=== PATIENT | female | born 1970 | race Caucasian/White ===

== ENCOUNTER → 2016-08-27 | Outpatient (CLI) | payer OTHER ==
[~2016-08-27] MED LIST: NORCO 325 MG-51 TAB PO; PRIL40 PO; QVAR0.08 MG/AC IH; ZYRTEC 10MG10 MG PO
== END ==
LOC: MC.RAD 14:45
DX: Z12.31 Encounter for screening mammogram for malignant neoplasm of breast (principal)

== ENCOUNTER 2017-08-05 08:44 | Inpatient (IN) | payer OTHER ==
[~2017-08-05] VITALS: Ht 157.5 cm; Wt 93.2 kg
[2017-08-05 09:16] LABS: HEMATOCRIT 41.6 % (37.0-47.0); HEMOGLOBIN 14.1 g/dl (12.5-16.0); MEAN CELL VOLUME 91 fl (80.0-100.0); MEAN CORPUSCULAR HEMOGLOBIN 31 pg (27.0-31.0); MEAN CORPUSCULAR HGB CONC 34 g/dl (33.0-37.0); PLATELET COUNT 220 K/mm3 (130-400); RED BLOOD COUNT 4.55 M/mm3 (4.10-5.30); REDCELL DISTRIBUTION WIDTH-CV 13.7 % (11.5-14.5)
[2017-08-05 09:22] LABS: PROTHROMBIN TIME 11.7 SECONDS (9.7-12.8)
[2017-08-05 09:24] LABS: PARTIAL THROMBOPLASTIN TIME 31.8 SECONDS (26.0-37.0)
[2017-08-05 09:26] LABS: ALANINE AMINOTRANSFERASE 40 U/L (9-52); ALBUMIN 4.4 gm/dL (3.5-5.0); ALKALINE PHOSPHATASE 130 U/L (50-136); ANION GAP 15 mmol/L (7-16); AST,SGOT 31 U/L (15-37); BILIRUBIN,TOTAL 0.5 mg/dL (0.0-1.0); BLOOD UREA NITROGEN 16 mg/dL (7-17); CALCIUM 9.2 mg/dL (8.4-10.2); CARBON DIOXIDE 23 mmol/L (22-30); CHLORIDE 104 mmol/L (98-107); CREATININE, serum 0.67 mg/dL (0.52-1.25); GLUCOSE 119 mg/dL (74-106); POTASSIUM 4.2 mmol/L (3.4-5.0); SODIUM 142 mmol/L (137-145)
[2017-08-05 09:37] LABS: TROPONIN-I < 0.012 ng/mL (0.000-0.034)
[2017-08-05 10:09] LABS: BAND 7 % (0-10); BASOPHIL 1 % (0-2); LYMPHOCYTE 3 % (20.0-51.0); NEUTROPHILS 87 % (42.0-75.2); PLATELET ESTIMATE NORMAL (NORMAL)
[2017-08-05 16:16] VITALS: BP 114/49; PULSE 79; TEMP 99.5
[2017-08-05 19:56] VITALS: BP 129/57; PULSE 80; TEMP 98.6
[2017-08-05 23:58] VITALS: BP 107/46; PULSE 81; TEMP 101.8; TEMP 98.3
[2017-08-06] VITALS (14 sets, daily range): BP systolic 104–128; BP diastolic 46–78; PULSE 61–94; TEMP 98.5–99.5
[2017-08-06 07:10] LABS: MEAN CORPUSCULAR HGB CONC 32 g/dl (33.0-37.0); PLATELET COUNT 171 K/mm3 (130-400); RED BLOOD COUNT 3.78 M/mm3 (4.10-5.30)
[2017-08-06 07:11] LABS: ANION GAP 12 mmol/L (7-16); BLOOD UREA NITROGEN 13 mg/dL (7-17); CALCIUM 8.1 mg/dL (8.4-10.2); CARBON DIOXIDE 25 mmol/L (22-30); CHLORIDE 104 mmol/L (98-107); CHOLESTEROL 151 mg/dL (120-200); CREATININE, serum 0.83 mg/dL (0.52-1.25); GLUCOSE 92 mg/dL (74-106); HDL CHOLESTEROL 30 mg/dL; LDL CHOLESTEROL 81 mg/dL; MAGNESIUM 1.9 mg/dL (1.6-2.3); POTASSIUM 3.5 mmol/L (3.4-5.0); SODIUM 140 mmol/L (137-145); TRIGLYCERIDE 201 mg/dL
[2017-08-06 07:12] LABS: HEMATOCRIT 36.1 % (37.0-47.0); HEMOGLOBIN 11.7 g/dl (12.5-16.0); MEAN CELL VOLUME 96 fl (80.0-100.0); MEAN CORPUSCULAR HEMOGLOBIN 31 pg (27.0-31.0)
[2017-08-06 07:41] LABS: TROPONIN-I < 0.012 ng/mL (0.000-0.034)
[2017-08-06 07:54] LABS: BAND 7 % (0-10); BASOPHIL 1 % (0-2); LYMPHOCYTE 7 % (20.0-51.0); NEUTROPHILS 80 % (42.0-75.2); PLATELET ESTIMATE NORMAL (NORMAL)
[2017-08-07 00:17] VITALS: BP 120/52; PULSE 87; TEMP 99.1
[2017-08-07 04:27] VITALS: BP 119/54; PULSE 88; TEMP 98.9
[2017-08-07 07:34] VITALS: BP 110/48; PULSE 77; TEMP 98
[2017-08-07] MEDS ORDERED: PRIL40 PO (09:15)
== END 2017-08-07 10:45 | disposition home or self-care (01) | DRG 287 ==
LOC: COL.ER 08:44 → SDCO 12:11 → COL.ER 12:11 → MEDICAL 12:11 → SDCO 08-07 10:45 → MEDICAL 08-07 10:48
PROVIDERS: Family Medicine; Internal Medicine
PROC: B2111ZZ Fluoroscopy of Multiple Coronary Arteries using Low Osmolar Contrast (ICD-10-PCS; principal; 2017-08-06)
DX: R07.89 Other chest pain (principal); K21.9 Gastro-esophageal reflux disease without esophagitis; J45.909 Unspecified asthma, uncomplicated
CPT/HCPCS: 99223-AI; 99232-AI; 99239; A9502; C1760; C1894; C9113; G0378; J1650; J2250; J2270; J2405; J2550; J3010; J7030; Q9967

== ENCOUNTER → 2017-08-21 | Outpatient (CLI) | payer OTHER | LOC: COL.RAD 07:38 | DX: K31.89 Other diseases of stomach and duodenum (principal); K21.9 Gastro-esophageal reflux disease without esophagitis | CPT/HCPCS: A9541 ==

== ENCOUNTER → 2017-10-23 | Outpatient (CLI) | payer OTHER | LOC: MC.RAD 08:37 | DX: Z12.31 Encounter for screening mammogram for malignant neoplasm of breast (principal) ==

== ENCOUNTER → 2021-02-16 | Outpatient (CLI) | payer OTHER | LOC: MC.RAD 11:33 | DX: Z12.31 Encounter for screening mammogram for malignant neoplasm of breast (principal) ==

== ENCOUNTER → 2023-04-01 | Outpatient (CLI) | payer BC | LOC: CANSCHCLI → MC.RAD 15:19 | DX: Z12.31 Encounter for screening mammogram for malignant neoplasm of breast (principal) ==